=== PATIENT | female | born 1980 ===

== ENCOUNTER 2016-09-09 20:08 | Emergency (ER) | payer SELFPAY ==
--- NOTE | 2016-09-13 00:47 | ER ---
ADMIT: 09/09/2016 RM/LOC: ER [facility] MR#: [id number] [facility] [address] [place] [id number] SONDRA GUERRERO , ,, , Emergency Room Report SEX: F AGE: 36 : 1980 DATE: 09/09/2016 SUBJECTIVE: The patient is a 36-year-old female with a past medical history of asthma and obsessive-compulsive disease and ulcerative colitis, who came to the ER with a chief complaint of cough, clear runny nose, congestion, and mild difficulty breathing for the last 4 days. The patient used her inhalers, which did not resolve the problem. The patient denies any chest pain or any fever. PHYSICAL EXAMINATION: GENERAL: The patient was in no distress. VITAL SIGNS: O2 saturation was 99% at room air. The patient was not tachypneic. The patient had some clear runny nose and some coughing. The patient was afebrile in the ER. HEAD AND NECK: Positive for erythematous oropharynx without any exudate. Trachea midline. LUNGS: Clear bilaterally, but there is decreased air movement bilaterally. I did not hear any crackles. HEART: Normal heart sounds. ABDOMEN: Soft. EXTREMITIES: There is no cyanosis and the rest of the physical examination is negative. There is no swelling of the lower extremities. The patient did not use any hormonal or contraceptive means. The patient received a breathing treatment with DuoNeb and after that she states that she believes that her airway has opened up and her secretions are coming on and she felt way better. The patient received also a dose of prednisone 40 mg p.o. in the ER. The patient was discharged to home with 4 more days of prednisone 40 mg and advised to follow up with the primary doctor. DIAGNOSIS: Upper respiratory infection, asthma. Foc Ramsay MD/ merari JOB #: [id number] CC: Fco Ramsay MD, Attending Physician Alfonso De Santiago MD, Family Physician
== END 2016-09-09 22:00 | disposition home or self-care (01) ==
LOC: ER 20:08
DX: J45.909 Unspecified asthma, uncomplicated (principal); J06.9 Acute upper respiratory infection, unspecified; Z90.49 Acquired absence of other specified parts of digestive tract; Z98.890 Other specified postprocedural states; Z88.6 Allergy status to analgesic agent; Z88.5 Allergy status to narcotic agent